=== PATIENT | female | born 1935 | race Caucasian/White ===

== ENCOUNTER 2018-04-14 12:18 | Observation (INO) | payer BC ==
[2018-04-14 12:33] VITALS: BMI 17.6
--- NOTE | 2018-04-14 12:35 | PDOC ---
History of Present Illness - General Chief Complaint: Weakness Stated Complaint: NAUSEA, DIZZINESS Time Seen by Provider: 04/14/18 12:33 Past History - Past Medical History Allergies/Adverse Reactions: Allergies Allergy/AdvReac Type Severity Reaction Status Date / Time amitriptyline Allergy Cough Verified 04/14/18 12:28 fosinopril [From Monopril] Allergy Cough Verified 04/14/18 12:29 lisinopril Allergy Cough Verified 04/14/18 12:29 Home Medications: Ambulatory Orders Gabapentin [Neurontin] 200 mg PO AM 04/14/18 Gabapentin [Neurontin] 600 mg PO HS 04/14/18 Losartan Potassium 50 mg PO DAILY 04/14/18 Metoprolol Tartrate [Lopressor -] 25 mg PO BID 04/14/18 Oxybutynin Chloride [Ditropan -] 5 mg PO TID 04/14/18 Sertraline HCl 50 mg PO DAILY 04/14/18 Warfarin Sodium [Coumadin] 7.5 mg PO DAILY 04/14/18 Cardiac Disorders: Yes (A-FIB) COPD: No HTN: Yes Other medical history: CHRONIC BACK PAIN - Suicide/Smoking/Psychosocial Hx Smoking History: Former smoker Have you smoked in the past 12 months: No Information on smoking cessation initiated: No *Physical Exam - Vital Signs Last Vital Signs Temp Pulse Resp BP Pulse Ox 98.3 F 51 L 19 133/77 99 04/14/18 12:28 04/14/18 12:28 04/14/18 12:28 04/14/18 12:28 04/14/18 12:28 ED Treatment Course - LABORATORY CBC & Chemistry Diagram: 04/14/18 13:25 04/15/18 06:25 Medical Decision Making - Medical Decision Making 04/15/18 09:42 see attending note *DC/Admit/Observation/Transfer Diagnosis at time of Disposition: Weakness - Discharge Dispostion Condition at time of disposition: Stable - Referrals - Patient Instructions - Post Discharge Activity
[2018-04-14] MEDS ORDERED: SODIUM CHLORIDE 500 ML IV STA (13:01)
[2018-04-14] MEDS ORDERED: ASPIRIN 81 MG CHEWABLE TABLETS PO ONE ×2 (13:18→13:49)
--- NOTE | 2018-04-14 13:19 | PDOC ---
History of Present Illness - General Chief Complaint: Weakness Stated Complaint: NAUSEA, DIZZINESS Time Seen by Provider: 04/14/18 12:33 History Source: Patient, Family Exam Limitations: No Limitations - History of Present Illness Initial Comments: 04/14/18 13:19 Patient is an 83F with history of afib (on coumadin) and HTN here today complaining of sudden onset weakness 1 hour prior to presentation. Denies chest pain, shortness of breath, fever, chills, nausea, vomiting, and dysuria. Denies abdominal pain and leg swelling. Denies history of blood clots, recent travel, immobilization. Patient states that she just feels much weaker. Past History - Past Medical History Allergies/Adverse Reactions: Allergies Allergy/AdvReac Type Severity Reaction Status Date / Time amitriptyline Allergy Cough Verified 04/14/18 12:28 fosinopril [From Monopril] Allergy Cough Verified 04/14/18 12:29 lisinopril Allergy Cough Verified 04/14/18 12:29 Home Medications: Ambulatory Orders Gabapentin [Neurontin] 200 mg PO AM 04/14/18 Gabapentin [Neurontin] 600 mg PO HS 04/14/18 Losartan Potassium 50 mg PO DAILY 04/14/18 Metoprolol Tartrate [Lopressor -] 25 mg PO BID 04/14/18 Oxybutynin Chloride [Ditropan -] 5 mg PO TID 04/14/18 Sertraline HCl 50 mg PO DAILY 04/14/18 Warfarin Sodium [Coumadin] 7.5 mg PO DAILY 04/14/18 Cardiac Disorders: Yes (A-FIB) COPD: No HTN: Yes Other medical history: CHRONIC BACK PAIN - Suicide/Smoking/Psychosocial Hx Smoking History: Former smoker Have you smoked in the past 12 months: No Information on smoking cessation initiated: No Review of Systems - Review of Systems Comments:: 04/14/18 13:21 GENERAL/CONSTITUTIONAL: No fever or chills. Positive for weakness. HEAD, EYES, EARS, NOSE AND THROAT: No change in vision. No sore throat. CARDIOVASCULAR: No chest pain or shortness of breath RESPIRATORY: No cough, wheezing, or hemoptysis. GASTROINTESTINAL: No nausea, vomiting, diarrhea or constipation. GENITOURINARY: No dysuria, frequency, or change in urination. MUSCULOSKELETAL: No joint or muscle swelling or pain. No neck or back pain. SKIN: No rash NEUROLOGIC: No headache, vertigo, loss of consciousness, or change in strength/ sensation. ENDOCRINE: No increased thirst. No abnormal weight change HEMATOLOGIC/LYMPHATIC: No anemia, easy bleeding, or history of blood clots. ALLERGIC/IMMUNOLOGIC: No hives or skin allergy. *Physical Exam - Vital Signs Last Vital Signs Temp Pulse Resp BP Pulse Ox 98.3 F 51 L 19 133/77 99 04/14/18 12:28 04/14/18 12:28 04/14/18 12:28 04/14/18 12:28 04/14/18 12:28 - Physical Exam Comments: 04/14/18 13:21 GENERAL: Awake, alert, and fully oriented, in no acute distress HEAD: No signs of trauma, normocephalic, atraumatic EYES: PERRLA, EOMI, sclera anicteric, conjunctiva clear ENT: Auricles normal inspection, hearing grossly normal, nares patent, oropharynx clear without exudates. Dry mucosa NECK: Normal ROM, supple, no lymphadenopathy, JVD, or masses LUNGS: No distress, speaks full sentences, clear to auscultation bilaterally HEART: Bradycardic, normal S1 and S2, no murmurs, rubs or gallops, peripheral pulses normal and equal bilaterally. ABDOMEN: Soft, nontender, normoactive bowel sounds. No guarding, no rebound. No masses EXTREMITIES: Normal inspection, Normal range of motion, no edema. No clubbing or cyanosis. NEUROLOGICAL: Cranial nerves II through XII grossly intact. Normal speech, no focal sensorimotor deficits SKIN: Warm, Dry, normal turgor, no rashes or lesions noted. ED Treatment Course - LABORATORY CBC & Chemistry Diagram: 04/14/18 13:25 04/14/18 13:25 - RADIOLOGY Radiology Studies Ordered: Category Date Time Status CHEST X-RAY PORTABLE* [RAD] Stat Radiology 04/14/18 13:02 Ordered Medical Decision Making - Medical Decision Making 04/14/18 13:16 Patient's EKG done at 13:05 shows sinus bradycardia with 1st degree AV block with borderline ST elevations in II, III, aVF, V3, V4, V5. No reciprocal st depressions. Aspirin ordered. Patient currently doesn't have chest pain. Cardiology paged, note time stamped. Will now complete rest of note. 04/14/18 13:24 Patient is an 83F with history of afib and HTN here today with weakness. Vital signs notable for bradycardia. EKG as noted above. Given aspirin and 500cc of fluids. Cardiac workup initiated. 04/14/18 14:26 Laboratory Tests 04/14/18 04/14/18 13:25 13:25 WBC 6.3 Hgb 13.6 Plt Count 177 Creat Clearance w eGFR > 60 Troponin I < 0.02 CBC normal. CMP reassuring. Troponin undetectable. Cardiology evaluated patient and EKG, does not think patient is having acute STEMI. Recommends observation and ECHO. 04/14/18 15:11 BPs elevated to 220/110, repeat 180/100. Given losartan PO. Will admit patient pending UA. 04/14/18 16:05 UA negative. 04/14/18 16:53 Accepted to tele obs by ROHITH aDvila to Dr Gonzalez. *DC/Admit/Observation/Transfer Diagnosis at time of Disposition: Weakness - Discharge Dispostion Condition at time of disposition: Stable Decision to Admit order: Yes - Referrals Referrals: ON STAFF,NOT [Primary Care Provider] - - Patient Instructions - Post Discharge Activity
--- NOTE | 2018-04-14 13:19 | PDOC ---
Attending Attestation - Resident Resident Name: Jelani Jamil - ED Attending Attestation I have performed the following: I have examined & evaluated the patient, The case was reviewed & discussed with the resident, I agree w/resident's findings & plan, Exceptions are as noted - HPI HPI: 04/14/18 13:19 83y F hx of afib on coumadin, htn, presents with complaint of feeling sleepy this morning in the car, states she didnt sleep too much, denies any chest pain , headache, dizziness, n/v, diaphorsis, sob, abd pain, back pain. pts ekg upon arrival noted for AZUL in inferior/anterior pattern with convex st changes. j point elevations vs stemi will give asa cardiology was paged - Physicial Exam PE: 04/15/18 09:42 see above - Medical Decision Making 04/14/18 13:52 pts old ekg, obtained from primary drag out man shows similar changes likely not acute in nature 04/14/18 17:[address] lincoln, agree likely chronic changes but requests echo for further eval trop and labs neg will obs tele for management of bp Heart Score/ECG Review - ECG Impressions Comment:: 04/14/18 13:50 Twelve-lead EKG was performed and reviewed by me. originally performed at 13:05 There is normal sinus rhythm with rate of 51 The axis is normal. First degree AV block Diffuse ST elevations with suggestion of J-point elevation in inverior/anterior leads no changes on repeat ekg perforemd at 13:11
[2018-04-14 13:34] LABS: BASO % 0.8 % (0-2.0); EOS % 2.2 % (0-4.5); HEMATOCRIT 41.1 % (32.4-45.2); HEMOGLOBIN 13.6 GM/dL (10.7-15.3); LYMPH % 29.6 % (8-40); MCH 31.1 pg (25.7-33.7); MCHC 33.1 g/dl (32.0-36.0); MEAN CELL VOLUME 93.8 fl (80-96); MEAN PLT VOLUME 7.9 fl (7.5-11.1); MONO % 7.7 % (3.8-10.2); NEUT % 59.7 % (42.8-82.8); PLATELET COUNT 177 K/MM3 (134-434); RBC 4.38 M/mm3 (3.60-5.2); RDW 14.5 % (11.6-15.6); WHITE BLOOD COUNT 6.3 K/mm3 (4.0-10.0)
[2018-04-14] MEDS ORDERED: ASPIRIN 81 MG CHEWABLE TABLETS ONE (13:43)
[2018-04-14 14:10] LABS: ALBUMIN 3.5 g/dl (3.4-5.0); ANION GAP 5 (8-16); BILIRUBIN,TOTAL 0.4 mg/dL (0.2-1.0); BLOOD UREA NITROGEN 20 mg/dL (7-18); CALCIUM 9.7 mg/dL (8.5-10.1); CHLORIDE 100 mmol/L (98-107); CO2 31 mmol/L (21-32); CREATININE 0.8 mg/dL (0.55-1.02); GLUCOSE,RANDOM 84 mg/dL (74-106); SGPT/ALT 23 U/L (12-78); SODIUM 136 mmol/L (136-145); TOT PROT 6.6 g/dl (6.4-8.2)
[2018-04-14 14:14] LABS: ALK PHOS 92 U/L (45-117)
[2018-04-14 14:15] LABS: MAGNESIUM 2.2 mg/dL (1.8-2.4); POTASSIUM 4.4 mmol/L (3.5-5.1); SGOT/AST 32 U/L (15-37)
[2018-04-14] MEDS ORDERED: LOSARTAN POTASSIUM 50 MG TABLET (FP) PO ONE (15:06)
[2018-04-14] MEDS ORDERED: LOSARTAN POTASSIUM 25 MG TABLET ONE (15:11)
[2018-04-14 15:27] LABS: URINE APPEARANCE CLEAR; URINE BILIRUBIN NEGATIVE (<2.0 mg/dL); URINE COLOR STRAW; URINE GLUCOSE (UA) NEGATIVE (NEGATIVE); URINE KETONE NEGATIVE (NEGATIVE); URINE LEUK ESTERASE NEGATIVE (NEGATIVE); URINE NITRITE NEGATIVE (NEGATIVE); URINE PROTEIN NEGATIVE (NEGATIVE); URINE UROBILINOGEN NEGATIVE mg/dL (0.2-1.0)
--- NOTE | 2018-04-14 15:28 | CON.CARD ---
Cardiology Consult (text) - Consultation Consultation Note: CC: lethargy/ab ekg 83 yo with hx of afib (on coumadin), HTN, who presented to the ED with acute onset of profound tiredness/weakness. Patient with chronic tiredness, has not been sleeping well for months since has been ill. However, on day of presentation had weakness to a new degree. Daughter also noticed patient appeared pale at the time. In ER machine read of EKG as read as acute VA due to j point elevation. prior ekg obtained for comparison --> similar to priors. HR was 50's, and bp elevated up to 180's. Patient denies associated dizziness or other sx's. Received IVF and asa in ER with improvement in sx's. Family states that one month ago her losartan dose had to be held for hypotension which resolved with IVF. +++ stress, has been in LTAC s/p cervical injury 6 months ago and is now in the hospital again. Denies cp, sob, orthopnea, pnd, le edema, palps, dizziness, bleeding, claudication or transient neurologic symptoms Denies f/c/s, n/v/d, cough, congestion, rash, h/a, visual disturbances. Past Medical History/Past surgical hx: Per hpi, AFIB, HTN Smoking history: Former smoker fam hx: no premature cad ros: per phi Ambulatory Orders Gabapentin [Neurontin] 200 mg PO AM 04/14/18 Gabapentin [Neurontin] 600 mg PO HS 04/14/18 Losartan Potassium 50 mg PO DAILY 04/14/18 Metoprolol Tartrate [Lopressor -] 25 mg PO BID 04/14/18 Oxybutynin Chloride [Ditropan -] 5 mg PO TID 04/14/18 Sertraline HCl 50 mg PO DAILY 04/14/18 Warfarin Sodium [Coumadin] 7.5 mg PO DAILY 04/14/18 Vital Signs - 24 hr 04/14/18 04/14/18 04/14/18 12:28 13:31 14:53 Temperature 98.3 F Pulse Rate 51 L Pulse Rate [ 58 L Apical] Respiratory 19 18 Rate Blood Pressure 133/77 Blood Pressure 182/80 [Right Arm] O2 Sat by Pulse 99 98 98 Oximetry (%) Intake & Output 04/12/18 04/13/18 04/14/18 04/15/18 07:59 07:59 07:59 07:59 Weight 100 lb NAD, calm JVD flat, neck supple ctab, nl effort rrr nl s1, s2. no mrg + bs soft nt nd ext without e/c/c + dp/pt, no carotid bruits no jaundice, diaphoresis aaox3 CBC, BMP 04/14/18 13:25 04/14/18 13:25 Laboratory Tests 04/14/18 13:25 Magnesium 2.2 Total Bilirubin 0.4 AST 32 ALT 23 Alkaline Phosphatase 92 Creatine Kinase 65 Troponin I < 0.02 Albumin 3.5 ekg: sb, 51 bpm. av conduction delay. por r wave progression anteriorly. jpoint elevation. possible diffuse pr-depression, can't exclude pericarditis pattern. tele: SB low 50s cxr: no infiltrate or congestion. 83 yo with hx of afib (on coumadin), HTN, who presented to the ED with acute onset of profound tiredness/weakness. ab ekg - EKG with j point elevation, similar to priors. no dynamic changes on repeat. No concern for acute VA. con't jenny. echo pending. weakness - acutely severe episode on presentation - hold metoprolol in case it is contributing to fatigue, HR currently in the low 50's which is not normal for her. If heart rate trends up, can consider resuming at a lower dose (25 mg/day instead of bid) - check tsh. - orthostatic vitals. afib - On coumadin for AC, con't dosing per inr. INR ordered. - rate control as mentioned above. HTN - con't losartan for htn, hold metoprolol as mentioned above.
--- NOTE | 2018-04-14 16:28 | EKG ---
Test Reason : Blood Pressure : / mmHG Vent. Rate : 054 BPM Atrial Rate : 054 BPM P-R Int : 280 ms QRS Dur : 078 ms QT Int : 386 ms P-R-T Axes : 068 023 064 degrees QTc Int : 366 ms SINUS BRADYCARDIA WITH 1ST DEGREE A-V BLOCK ANTERIOR INFARCT , AGE UNDETERMINED INFERIOR INJURY PATTERN ACUTE [place] / STEMI ABNORMAL ECG NO PREVIOUS ECGS AVAILABLE Confirmed by MARIMAR HERNANDEZ, MICHELL ([id number]) on 04/14/2018 4:27:44 PM Referred By: Confirmed By:MICHELL MINAYA MD
--- NOTE | 2018-04-14 17:23 | HP ---
Admitting History and Physical - Admission Chief Complaint: weakness, tiredness History of Present Illness: This is a 83 year old female with pmhx of Afib (on coumadin) HTN, who presented to the ED with acute onset tiredness. Pt has been under duress for the past month because her has been admitted and recovering from cervical surgery. Last night she states she did not sleep and on her way to the hospital with her daughter she felt it, denies, cp, sob, abd pain, fever, chills, dizziness, COREA. Upon arrival to the ED pt was noted to be hypertensive SBP 180's. History Source: Patient Limitations to Obtaining History: No Limitations - Past Medical History Cardiovascular: Yes: AFIB, HTN - Smoking History Smoking history: Former smoker Have you smoked in the past 12 months: No - Alcohol/Substance Use History of Substance Use: reports: None - Social History Usual Living Arrangement: Yes: With Spouse ADL: Independent Home Medications - Allergies Allergies/Adverse Reactions: Allergies Allergy/AdvReac Type Severity Reaction Status Date / Time amitriptyline Allergy Cough Verified 04/14/18 12:28 fosinopril [From Monopril] Allergy Cough Verified 04/14/18 12:29 lisinopril Allergy Cough Verified 04/14/18 12:29 - Home Medications Home Medications: Ambulatory Orders Gabapentin [Neurontin] 200 mg PO AM 04/14/18 Gabapentin [Neurontin] 600 mg PO HS 04/14/18 Losartan Potassium 50 mg PO DAILY 04/14/18 Metoprolol Tartrate [Lopressor -] 25 mg PO BID 04/14/18 Oxybutynin Chloride [Ditropan -] 5 mg PO TID 04/14/18 Sertraline HCl 50 mg PO DAILY 04/14/18 Warfarin Sodium [Coumadin] 7.5 mg PO DAILY 04/14/18 Review of Systems - Review of Systems Constitutional: reports: Lethargy, Weakness Eyes: reports: No Symptoms HENT: reports: No Symptoms Neck: reports: No Symptoms Cardiovascular: reports: No Symptoms Respiratory: reports: No Symptoms Gastrointestinal: reports: No Symptoms Genitourinary: reports: No Symptoms Musculoskeletal: reports: No Symptoms Integumentary: reports: No Symptoms Neurological: reports: No Symptoms Endocrine: reports: No Symptoms Hematology/Lymphatic: reports: No Symptoms Psychiatric: reports: No Symptoms Physical Examination Vital Signs: Vital Signs Temperature 98.3 F 04/14/18 12:28 Pulse Rate 58 L 04/14/18 14:53 Respiratory Rate 18 04/14/18 14:53 Blood Pressure 182/80 04/14/18 14:53 O2 Sat by Pulse Oximetry (%) 98 04/14/18 14:53 Constitutional: Yes: Calm Eyes: Yes: Conjunctiva Clear HENT: Yes: Atraumatic Neck: Yes: Supple Cardiovascular: Yes: Regular Rate and Rhythm, S1, S2 Respiratory: Yes: Regular, CTA Bilaterally Gastrointestinal: Yes: Normal Bowel Sounds, Soft Musculoskeletal: Yes: WNL Extremities: Yes: WNL Edema: LLE: Trace, RLE: Trace Integumentary: Yes: WNL Neurological: Yes: Alert, Oriented, Cran Nerves II-XII Intact Psychiatric: Yes: Alert, Oriented Labs: CBC, BMP 04/14/18 13:25 04/14/18 13:25 Imaging - Results X-ray: Report Reviewed, Image Reviewed EKG: Report Reviewed, Image Reviewed Problem List - Problems (1) ST elevation Code(s): R94.31 - ABNORMAL ELECTROCARDIOGRAM [ECG] [EKG] (2) Weakness Code(s): R53.1 - WEAKNESS Assessment/Plan Assessment: 83 year old female with afib and htn presented with acute onset weakness Plan: 1. HTN urgency - Additional dose 50mg daily losartan given in ED - Will monitor and up titrate losartan as needed - Hold lopressor 2. Weakness acute, bradycardia - Hold bb due to weakness, if elevated HR can restart at 25mg daily - Check TSH - Obtain orthostatics - Obtain UA r/o infectious cause 3 AFib - Continue Coumadin per INR - INR pending - INR goal 2-3 - Hold bb 4. EKG changes - J point elevations, EKG appears unchanged with previous ekg, per cards no concern for acute DC - Trend trops, x1 neg - ECHO ordered - Appreciate cardiology consult 5. Social - Takes zoloft, will hold for weakness Visit type - Emergency Visit Emergency Visit: Yes Care time: The patient presented to the Emergency Department on the above date and was hospitalized for further evaluation of their emergent condition. - New Patient This patient is new to me today: Yes Date on this admission: 04/14/18 - Critical Care Critical Care patient: No Hospitalist Screening - Colonoscopy Questionnaire Colonoscopy Questionnaire: Colonoscopy Questionnaire - Patient: 50 - 75 years old and never had a screening colonoscopy: Unknown History of colon or rectal polyps, or CA: Unknown History of IBD, Crohn's disease or UC: Unknown History of abdominal radiation therapy as a child: Unknown - Relative: 1 with colon or rectal CA, or polyps at age 60 or younger: Unknown Colon or rectal CA diagnosed at age 45 or younger: Unknown Multiple relatives with colon or rectal CA: Unknown - Outcome: Screening Result: Negative Screen
[2018-04-14 17:46] LABS: INR 2.75 (0.82-1.09); PROTHROMBIN TIME (PATIENT) 31.1 SEC (9.7-13.0)
[2018-04-14] MEDS ORDERED: WARFARIN NA 7.5 MG TABLET (FP) PO SCH (18:00)
[2018-04-14] MEDS ORDERED: WARFARIN NA 1 MG TABLET (FP) ONE (18:38)
[2018-04-14] MEDS ORDERED: WARFARIN NA 5 MG TABLET (UD) ONE (18:38)
[2018-04-14] MEDS ORDERED: traMADol HCL 50 MG TABLET PO ONE (22:45)
[2018-04-14] MEDS ORDERED: GABAPENTIN 100 MG CAPSULE (FP) ONE (22:53)
[2018-04-14] MEDS ORDERED: traMADol HCL 50 MG TABLET ONE (22:53)
[2018-04-14] MEDS ORDERED: GABAPENTIN 300 MG CAPSULE (FP) PO SCH (23:00)
[2018-04-15 07:04] LABS: INR 3.13 (0.82-1.09); PROTHROMBIN TIME (PATIENT) 35.4 SEC (9.7-13.0)
[2018-04-15 07:21] LABS: ANION GAP 3 (8-16); BLOOD UREA NITROGEN 14 mg/dL (7-18); CALCIUM 9.6 mg/dL (8.5-10.1); CHLORIDE 105 mmol/L (98-107); CO2 32 mmol/L (21-32); CREATININE 0.6 mg/dL (0.55-1.02); GLUCOSE,RANDOM 82 mg/dL (74-106); MAGNESIUM 2.1 mg/dL (1.8-2.4); PHOSPHOROUS 2.4 mg/dL (2.5-4.9); POTASSIUM 4.1 mmol/L (3.5-5.1); SODIUM 140 mmol/L (136-145)
[2018-04-15] MEDS ORDERED: NAPH,MB-DB/K PH,MBDB POWDER PACKET PO ONE (08:00)
[2018-04-15] MEDS ORDERED: LOSARTAN POTASSIUM 50 MG TABLET (FP) PO SCH (10:00)
--- NOTE | 2018-04-15 10:52 | EKG ---
Test Reason : Blood Pressure : / mmHG Vent. Rate : 052 BPM Atrial Rate : 052 BPM P-R Int : 258 ms QRS Dur : 074 ms QT Int : 386 ms P-R-T Axes : 067 023 058 degrees QTc Int : 358 ms SINUS BRADYCARDIA WITH 1ST DEGREE A-V BLOCK ANTERIOR INFARCT , AGE UNDETERMINED INFERIOR INJURY PATTERN ACUTE [place] / STEMI ABNORMAL ECG CLINICAL CORRELATION REQUIRED NO PREVIOUS ECGS AVAILABLE Confirmed by CATIE MAGALLANES MD ([id number]) on 04/15/2018 10:52:19 AM Referred By: Confirmed By:CATIE MAGALLANES MD
--- NOTE | 2018-04-15 11:15 | PN ---
Progress Note (short form) - Note Progress Note: s: no cp sob palps dizzy; feels better wants to go home o: Vital Signs Period Temp Pulse Resp BP Sys/[place] Pulse Ox Last 24 Hr 98 F-98.5 F 51-88 16-23 100-182/47-80 97-99 NAD, calm JVD flat, neck supple ctab, nl effort rrr nl s1, s2. no mrg + bs soft nt nd ext without e/c/c no jaundice, diaphoresis aaox3 Current Medications Generic Name Dose Route Start Last Admin Trade Name Jose Alberto PRN Reason Stop Dose Admin Amlodipine Besylate 5 mg 04/15/18 11:15 Norvasc - PO DAILY DEBBIE Gabapentin 600 mg 04/14/18 23:00 04/14/18 23:02 Neurontin - PO 600 mg HS DEBBIE Administration Losartan Potassium 50 mg 04/15/18 10:00 04/15/18 10:00 Cozaar - PO 50 mg DAILY DEBBIE Administration Warfarin Sodium 7.5 mg 04/14/18 18:00 04/14/18 18:36 Coumadin - PO 7.5 mg 1800 DEBBIE Administration CBC, BMP 04/14/18 13:25 04/15/18 06:25 ekg: sb, 51 bpm. av conduction delay. por r wave progression anteriorly. jpoint elevation. possible diffuse pr-depression, can't exclude pericarditis pattern. tele: Sr 60s cxr: no infiltrate or congestion. echo 03/2018: mild lvh, nl lv/rv, mild mr a/p: 83 yo with hx of afib (on coumadin), HTN, who presented to the ED with acute onset of profound tiredness/weakness. ab ekg - EKG with j point elevation, similar to priors. no dynamic changes on repeat. No concern for acute DC. jenny neg. echo unremarkable. weakness - acutely severe episode on presentation - hold metoprolol in case it is contributing to fatigue, HR in the low 50's on admit which is not normal for her. HR improved today off bb. -feeling better today afib - On coumadin for AC, con't dosing per inr. - in sr now. holding bb as above. HTN - con't losartan for htn, hold metoprolol as mentioned above. bp high w/o bb, will add norvasc 5 qd. -if bp improves later today then ok for dc from cardiac pov and pt will f/u with her cardio dr fu next week.
[2018-04-15] MEDS ORDERED: GABAPENTIN 100 MG CAPSULE (FP) PO ONE (11:40)
[2018-04-15] MEDS ORDERED: amLODIPine BESYLATE 5 MG TABLET (FP) ONE (11:59)
[2018-04-15] MEDS ORDERED: amLODIPine BESYLATE 5 MG TABLET (FP) PO SCH (12:00)
--- NOTE | 2018-04-15 14:03 | DS ---
Physical Exam: SUBJECTIVE: Patient seen and examined. She feels better, ate breakfast, would like to go home OBJECTIVE: Vital Signs Period Temp Pulse Resp BP Sys/[place] Pulse Ox Last 24 Hr 98 F-98.5 F 58-88 16-23 97-182/37-80 97-100 PE Neuro: alert,awake, cn 2-12intact Pulm: CTAB CV: s1 s2 bradycardia Abd: s nt nd + bs Ext: warm no le edema Laboratory Results - last 24 hr 04/14/18 04/14/18 04/14/18 13:25 13:25 13:31 PT with INR Cancelled INR Cancelled Sodium 136 Potassium 4.4 Chloride 100 Carbon Dioxide 31 Anion Gap 5 L BUN 20 H Creatinine 0.8 Creat Clearance w eGFR > 60 Random Glucose 84 Calcium 9.7 Phosphorus Magnesium 2.2 Total Bilirubin 0.4 AST 32 ALT 23 Alkaline Phosphatase 92 Creatine Kinase 65 Troponin I < 0.02 Total Protein 6.6 Albumin 3.5 TSH 1.59 Urine Color Straw Urine Appearance Clear Urine pH 6.0 Ur Specific [place] 1.006 Urine Protein Negative Urine Glucose (UA) Negative Urine Ketones Negative Urine Blood 1+ H Urine Nitrite Negative Urine Bilirubin Negative Urine Urobilinogen Negative Ur Leukocyte Esterase Negative Urine WBC (Auto) 1 Urine RBC (Auto) 1 04/14/18 04/14/18 04/14/18 15:10 17:02 22:20 PT with INR 31.10 H INR 2.75 H Sodium Potassium Chloride Carbon Dioxide Anion Gap BUN Creatinine Creat Clearance w eGFR Random Glucose Calcium Phosphorus Magnesium Total Bilirubin AST ALT Alkaline Phosphatase Creatine Kinase 35 Troponin I 0.02 Total Protein Albumin TSH Cancelled Urine Color Urine Appearance Urine pH Ur Specific [place] Urine Protein Urine Glucose (UA) Urine Ketones Urine Blood Urine Nitrite Urine Bilirubin Urine Urobilinogen Ur Leukocyte Esterase Urine WBC (Auto) Urine RBC (Auto) 04/15/18 04/15/18 04/15/18 06:25 06:25 06:25 PT with INR 35.40 H INR 3.13 H Sodium 140 Potassium 4.1 Chloride 105 Carbon Dioxide 32 Anion Gap 3 L BUN 14 Creatinine 0.6 Creat Clearance w eGFR Random Glucose 82 Calcium 9.6 Phosphorus 2.4 L Magnesium 2.1 Total Bilirubin AST ALT Alkaline Phosphatase Creatine Kinase Cancelled 27 Troponin I Cancelled 0.02 Total Protein Albumin TSH Cancelled 1.57 Urine Color Urine Appearance Urine pH Ur Specific [place] Urine Protein Urine Glucose (UA) Urine Ketones Urine Blood Urine Nitrite Urine Bilirubin Urine Urobilinogen Ur Leukocyte Esterase Urine WBC (Auto) Urine RBC (Auto) HOSPITAL COURSE: Date of Admission:04/14/18 Date of Discharge: 04/15/18 Minutes to complete discharge: 37 Discharge Summary Reason For Visit: WEAKNESS Current Active Problems ST elevation (Acute) Weakness (Acute) Hospital Course: Hospital Course: Briefly, this 83 year old female with pmhx of Afib (on coumadin) HTN, presented to the ED with acute onset tiredness. Pt has been under duress for the past month because her has been admitted and recovering from cervical surgery. Upon arrival to the ED pt was noted to be hypertensive SBP 180's. ECHO: 03/2018: mild lvh, nl lv/rv, mild mr Subsequent Hospital Course/Progress Note/DC summary: Assessment: 83 year old female with afib and htn presented with acute onset weakness Plan: 1. HTN urgency - BP improved - Home with losartan - Started low dose amlodipine 2.5mg daily, down from 5mg as BP with increase drop with 5mg, pt however, asymptomatic with drop 2. Weakness acute, bradycardia - Weakness resolved, echo above - UA neg, TSH wnl - Stop bb - Outpt follow up with block trader Dr. Bobby 3. AFib - Supra therapeutic today, instructed daughter to hold todays dose, can resume tomorrow - Coumadin 7.5mg 4. EKG changes - J point elevations, EKG appears unchanged with previous ekg, per cards no concern for acute NM - Trops x3 neg Dispo: - Home with above meds and plan - Daughter aware and agrees to above plan Condition: Stable - Instructions Diet, Activity, Other Instructions: Please return to the ED for any new, persistent, or worsening symptoms. Follow up with your PCP in 1 week Keep scheduled appointment with block trader next week Stop lopressor Start norvasc Referrals: ON STAFF,NOT [Primary Care Provider] - Disposition: HOME - Home Medications Comprehensive Discharge Medication List: Ambulatory Orders Gabapentin [Neurontin] 200 mg PO AM 04/14/18 Gabapentin [Neurontin] 600 mg PO HS 04/14/18 Losartan Potassium 50 mg PO DAILY 04/14/18 Oxybutynin Chloride [Ditropan -] 5 mg PO TID 04/14/18 Sertraline HCl 50 mg PO DAILY 04/14/18 Warfarin Sodium [Coumadin] 7.5 mg PO DAILY 04/14/18 Amlodipine Besylate [Norvasc -] 2.5 mg PO DAILY #30 tablet 04/15/18 Problem List - Problems (1) ST elevation Code(s): R94.31 - ABNORMAL ELECTROCARDIOGRAM [ECG] [EKG] (2) Weakness Code(s): R53.1 - WEAKNESS This patient is new to me today: No Emergency Visit: Yes ED Registration Date: 04/14/18 Care time: The patient presented to the Emergency Department on the above date and was hospitalized for further evaluation of their emergent condition. Critical Care patient: No - Discharge Referral Referred to [facility] Med [facility].C[facility] No
[2018-04-15 15:11] VITALS: BP 100/43; PULSE 75; TEMP 97.9
== END 2018-04-15 15:05 | disposition home or self-care (01) ==
LOC: JER 12:18 → JERBED 16:54
PROVIDERS: ADMIT Hospitalist; ATTEND Nurse Practitioner Acute Care
PROC: 3E0337Z Introduction of Electrolytic and Water Balance Substance into Peripheral Vein, Percutaneous Approach (ICD-10-PCS; principal; 2018-04-14)
DX: R53.1 Weakness (principal); R94.31 Abnormal electrocardiogram [ECG] [EKG]; I48.91 Unspecified atrial fibrillation; I10 Essential (primary) hypertension; I16.0 Hypertensive urgency; R00.1 Bradycardia, unspecified; M54.5 Low back pain; G89.29 Other chronic pain; Z79.01 Long term (current) use of anticoagulants; Z88.8 Allergy status to other drugs, medicaments and biological substances
CPT/HCPCS: 36415; 71045-TC-FY; 80048; 80053; 81003; 81015; 82550; 83735; 84100; 84443; 84484; 85025; 85610; 87086; 93005; 93010; 93306-TC; 99285-25; G0378